=== PATIENT | female | born 1955 | race Caucasian/White ===

== ENCOUNTER → 2018-08-31 | Outpatient (CLI) | payer OTHER, BC ==
--- NOTE | 2018-08-31 18:32 | XCELERA REPORT ---
[address] [address] Transthoracic Echocardiogram Report Name: JOSE REYES Age: 63 yrs Gender: Female : 1955 Patient Status: Outpatient Patient Location: Study Date: 08/31/2018 03:15 PM Height: 63 in Weight: 210 lb BSA: 2.0 m2 Procedure: A two-dimensional transthoracic echocardiogram with color flow and Doppler was performed. The study was technically difficult with many images being suboptimal in quality. Reason For Study: DYSPNEA History: DYSPNEA. Ordering Physician: CONCHITA GO Performed By: Tim Peralta Interpretation Summary The left ventricle is normal in size. There is normal left ventricular wall thickness. LV EF is 65% Left ventricular systolic function is normal. The left ventricular wall motion is normal. There is no thrombus. There is no ventricular septal defect visualized. Doppler measurements suggest normal left ventricular diastolic function The right ventricle is mildly dilated. The right ventricular systolic function is normal. The right atrium is normal. The interatrial septum is intact with no evidence for an atrial septal defect. There is no Doppler evidence for an interatrial shunt There is no evidence of mitral valve prolapse. There is no vegetation seen on the mitral valve. There is no mitral valve stenosis. There is no mitral regurgitation noted. There is no aortic valvular vegetation. There is no aortic valve stenosis There is no LVOT obstruction. No aortic regurgitation is present. There is no tricuspid stenosis. There is a trace amount of tricuspid regurgitation Right ventricular systolic pressure is normal. RVSP is 24 to 29 mm of Hg , with RA mean of 5 to 10. The inferior vena cava appeared normal and decreased > 50% with respiration (RAP 5-10 mmHg) MMode/2D Measurements & Calculations RVDd: 3.4 cm LVIDd: 5.7 cm FS: 40.9 % Ao root diam: 2.8 cm IVSd: 0.79 cm LVIDs: 3.4 cm EDV(Teich): 161.3 ml Ao root area: 6.3 cm2 LVPWd: 0.85 cm ESV(Teich): 46.7 ml LA dimension: 4.1 cm EF(Teich): 71.1 % Doppler Measurements & Calculations MV E max keenan: MV P1/2t max keenan: Ao V2 max: LV V1 max P.4 cm/sec 78.2 cm/sec 130.3 cm/sec 5.6 mmHg MV A max keenan: MV P1/2t: 95.5 msec Ao max P.8 mmHgLV V1 max: 84.1 cm/sec MVA(P1/2t): 2.3 cm2 118.2 cm/sec MV E/A: 0.97 MV dec slope: 239.7 cm/sec2 MV dec time: 0.24 sec PA V2 max: TR max keenan: MV P1/2t-pr_phl: 109.1 cm/sec 217.2 cm/sec 95.5 msec PA max P.8 mmHgTR max P.9 mmHg Left Ventricle The left ventricle is normal in size. There is normal left ventricular wall thickness. LV EF is 65%. Left ventricular systolic function is normal. Doppler measurements suggest normal left ventricular diastolic function. The left ventricular wall motion is normal. There is no thrombus. There is no ventricular septal defect visualized. Right Ventricle The right ventricle is mildly dilated. The right ventricular systolic function is normal. Atria The right atrium is normal. The left and right artia are mildly dilated. The interatrial septum is intact with no evidence for an atrial septal defect. There is no Doppler evidence for an interatrial shunt. Mitral Valve There is no evidence of mitral valve prolapse. There is no vegetation seen on the mitral valve. There is no mitral valve stenosis. There is no mitral regurgitation noted. Aortic Valve There is no aortic valvular vegetation. There is no aortic valve stenosis. There is no LVOT obstruction. No aortic regurgitation is present. Tricuspid Valve There is no tricuspid stenosis. There is a trace amount of tricuspid regurgitation. Right ventricular systolic pressure is normal. RVSP is 24 to 29 mm of Hg , with RA mean of 5 to 10. Pulmonic Valve There is no pulmonic valvular stenosis. There is no pulmonic valvular regurgitation. Great Vessels The aortic root is not well visualized. The inferior vena cava appeared normal and decreased > 50% with respiration (RAP 5-10 mmHg). Effusions There is no pericardial effusion. : CONCHITA GO > Norma Swanson
== END ==
LOC: SP 14:52
PROVIDERS: ATTEND Registered Nurse General Practice
DX: R06.09 Other forms of dyspnea (principal)
CPT/HCPCS: 93306

== ENCOUNTER → 2019-04-08 | Outpatient (CLI) | payer OTHER, BC ==
[2019-04-09 14:37] LABS: ANTICHROMATIN AB <0.2 AI (0.0-0.9); CENTROMERE B AB <0.2 AI (0.0-0.9); JO-1 ANTIBODY (ANACOMP) <0.2 AI (0.0-0.9); SJOGREN'S ANTI-SS-B AB <0.2 AI (0.0-0.9); SJOGREN'S SS-A ANTIBODY <0.2 AI (0.0-0.9)
[2019-04-09 16:05] LABS: DNA DOUBLE STRAND ANTIBODY ANA 1 IU/mL (0-9)
[2019-04-09 17:36] LABS: CYTOPLASMIC (C-ANCA) <1:20 titer (Neg:<1:20)
[2019-04-10 18:19] LABS: ATYPICAL PANCA <1:20 titer (Neg:<1:20); PERINUCLEAR (P-ANCA) <1:20 titer (Neg:<1:20)
== END ==
LOC: OD 10:55
PROVIDERS: ATTEND Internal Medicine Pulmonary Disease
DX: R94.2 Abnormal results of pulmonary function studies (principal)
CPT/HCPCS: 36415; 86021; 86225; 86235; 86430

== ENCOUNTER → 2019-06-03 | Outpatient (CLI) | payer OTHER, BC ==
--- NOTE | 2019-06-03 10:49 | RADIOLOGY REPORT (SQ) ---
EXAM DESCRIPTION: ZE SWALLOW COMPLETED DATE/TIME: 06/03/2019 10:40 am REASON FOR STUDY: R47.02 DYSPHASIA R47.02 DYSPHASIA COMPARISON: None. TECHNIQUE: Videofluoroscopic swallowing examination was performed in conjunction with speech patholo gy. Videofluoroscopic imaging was obtained and reviewed and these are the findings: RADIATION DOSE: Fluoro time 1.22 minutes 1 images saved to PACS. LIMITATIONS: None FINDINGS: The patient was brought into the fluoro room and placed upright on a modified barium swall ow chair. The patient was then given multiple consistencies mixed with barium to swallow under live fluoroscopic video guidance. According to the Speech Pathologist there was no penetration or aspirat ion. Please refer to the speech pathology report for further details. IMPRESSION: NO EVIDENCE OF PENETRATION OR ASPIRATION. PLEASE SEE SPEECH PATHOLOGIST REPORT FOR OTHER FINDINGS AND RECOMMENDATIONS. COMMENT: None Quality ID 145: Final reports for procedures using fluoroscopy that document radiation exposure mohan pino, or exposure time and number of fluorographic images (if radiation exposure indices are not avail able) TECHNICAL DOCUMENTATION: JOB ID: [id number] [employer]- All Rights Reserved Reading location - IP/workstation name: [email or web address] [id number]
--- NOTE | 2019-06-03 11:53 | ST Modified Barium Swallow ---
Recommendation - Recommendations Recommendations: Patient is scheduled for barium swallow this day. Recommend GI follow up due to nature of symptoms. Medical Diagnoses - Medical Diagnoses Medical Diagnosis Description & ICD-10 Code(s): dysphasia R47.02, dysphagia R13.10 Other Medical Diagnoses/Co-Morbidities: per patient report: reflux, lung damage from prior pneumonia ST Modified Barium Swallow - General Date: 06/03/19 Referring Physician: Dr. Hahn Risks/Precautions: None Date of Onset: 05/23/17 - approximate onset, patient reports, "a couple of years" Reason for Referral: difficulty swallowing - History History obtained from: Patient -: Medical - per patient report: patient states that she has significant coughing with all PO intake and globus sensation. She states that this can happe n with any texture. No recent or recurrent pneumonia reported, but patient did have pneumonia several years ago, and reports this caused lasting damage to her lungs. Medications: per patient report: ibuprofin, reflux medication, blood pressure, cholesterol medication, aspiration s/p stent, proair (has not used yet), amoxicillin Allergies: per patient report: crab meat - Functional Status Prior Functional Status: INDEPENDENT: feeding Current Functional Limitations: feeding - coughing, globus - Subjective Patient/caregiver goal(s): r/o aspiration Cognitive-Linguistic Function: WNL Speech Intelligibility: WNL Current Nutritional Means: PO Current PO diet: Regular Current symptoms: Coughing, c/o Globus sensation Pain: Patient reports, 3/5 - right side pain along gum line reported - Objective Assessment: Upright, Left Lateral - Food Trials Used Food trials used: Thin liquids, Pureed, Regular The patient: Was Able to Self Feed - Oral-Motor Skills Dentition: Full Velo-pharyngeal function: Unremarkable Laryngeal Function: clear voicing - Assessment Oral prep: Normal Labial closure: Adequate Leakage: None Mastication: Adequate Lingual Movement: Normal Oral stage: Age appropriate - Pharyngeal Stage Initiation of Pharyngeal Stage Reflex: Normal Decreased laryngeal elevation: No Reduced Velopharyngeal Closure: no Reduced pressure generation: No reduced tongue-based retraction: No Pre-swallow pooling in valleculae: None Pre-Swallow pooling in pyriforms: None Reduced Thyro-Hyoid approximation: No Reduced epiglottic excursion: No Reduced pharyngeal peristalsis/contraction: No Multiple Swallows with: Cleared w/ Dry Swallow Post-swallow residulas vallecular: Mild Post-Swallow residuals in pyriforms: None - Fall Risk Assessment Medications/Conditions that increase fall risks include: Antidepressants, sedatives, anti-arrhythmic, diuretic, benzodiazipenes, neuroleptics. BP regulation problems, cardiac problems, balance or gait deficits, neurological problems. Fall Risk Actions Taken: No action needed - Behavioral Observations During evaluation process patient: was pleasant, was cooperative, able to answer questions, provided medical history - Treatment / Educational Needs: Treatment/Education Needs: Treatment consisted of patient education on the role of the Speech Pathologist. Patient's plan of care and golas were communicated as well as scheduling and attendance policies. Recommendations for initial home program were shared. Patient demonstrated understanding and verbalized agreement. - Impression/Summary Laryngeal Penetration: No Tracheal Aspiration: no Patient presents with: Normal swallow at eval Risk of Aspiration: Minimal Evaluation and Findings: No pharyngeal phase deficits noted on evaluation. Patient is scheduled for barium swallow this day, this is recommended due to nature of symptoms. - Recommendations Solid diet recommendations: Regular Liquid Diet Modification: Thin Dysphagia therapy with IOS DEVELOPER: no Reflux Precautions: Taught to Patient Recommended techniques: Fully Upright During Meal, Alternate Bites/Sips Supervision: Independent Information, Precautions and Recommendations: Patient (Written), Patient (Verbal) - Time Total Time: 30 - Plan of Care Strategies to optimize patient understanding include:: ongoing assessment of educational needs, implementation of educational strategies, and re-education. - - -: Thank you for the opportunity to work with this patient and his/her family. Should you have any questions about this patient's plan or progress, I can be reached at [phone].
--- NOTE | 2019-06-03 14:26 | RADIOLOGY REPORT (SQ) ---
EXAM DESCRIPTION: BARIUM SWALLOW ESOPHAGUS COMPLETED DATE/TIME: 06/03/2019 10:40 am REASON FOR STUDY: R47.02 DYSPHASIA R47.02 DYSPHASIA COMPARISON: Cookie swallow same date Two-view chest 01/02/2016 CT chest 05/27/2009 TECHNIQUE: Under fluoroscopic guidance, patient ingested effervescent granules followed by thick and thin barium. Fluoroscopic spot images and routine radiographic images acquired and stored on PACS. 12 MM BARIUM TABLET GIVEN: Yes. No significant delay in passage. LIMITATIONS: None. FLUOROSCOPY TIME: FLUORO TIME: 1.6 minutes 8 series of digital fluoroscopic images saved to PACS. FINDINGS: NEUROMUSCULAR COORDINATION OF SWALLOW: Normal. No aspiration. ESOPHAGEAL MOTILITY: Normal peristalsis. No esophageal spasm. ESOPHAGEAL MUCOSA: Normal mucosa without masses or ulceration. GASTRO-ESOPHAGEAL JUNCTION: Small hiatal hernia. No Schatzki's ring or distal esophageal stricture. Unprovoked gastroesophageal reflux to the cervical esophagus. NON-GI TRACT STRUCTURES: No significant finding. OTHER: No other significant finding. IMPRESSION: Small hiatal hernia with unprovoked gastroesophageal reflux to the cervical esophagus. No distal esophageal stricture. No gross mucosal irregularity COMMENT: Quality ID 145: Final reports for procedures using fluoroscopy that document radiation exp osure indices, or exposure time and number of fluorographic images (if radiation exposure indices are not available) TECHNICAL DOCUMENTATION: JOB ID: [id number] [employer]- All Rights Reserved Reading location - IP/workstation name: [email or web address]
== END ==
LOC: RAD 08:22
PROVIDERS: ATTEND Internal Medicine Pulmonary Disease
DX: K21.9 Gastro-esophageal reflux disease without esophagitis (principal); K44.9 Diaphragmatic hernia without obstruction or gangrene; R47.02 Dysphasia; R13.10 Dysphagia, unspecified
CPT/HCPCS: 74220; 74230

== ENCOUNTER → 2019-07-14 | Day surgery (SDC) | payer OTHER, BC ==
[~2019-07-14] MED LIST: LIDOCAINE 2% JELLY 5 ML TUBE ONE
== END ==
LOC: END 07:28
PROVIDERS: ATTEND Internal Medicine Pulmonary Disease
DX: K44.9 Diaphragmatic hernia without obstruction or gangrene (principal)
CPT/HCPCS: 91010